=== PATIENT | female | born 1990 | race American Indian/Alaskan Native ===

== ENCOUNTER 2017-10-01 15:36 | Outpatient (CLI) | payer OTHER ==
[2017-10-01 15:56] VITALS: BP 103/58
== END 2017-10-01 16:50 | disposition home or self-care (01) ==
LOC: TRG 15:36
PROVIDERS: ATTEND Obstetrics & Gynecology
DX: Z34.92 Encounter for supervision of normal pregnancy, unspecified, second trimester (principal); Z3A.20 20 weeks gestation of pregnancy
CPT/HCPCS: 59025

== ENCOUNTER 2017-10-26 10:12 | Outpatient (CLI) | payer OTHER ==
[2017-10-26] MEDS ORDERED: NORCO 5/325 PO ONE (11:03)
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
[2017-10-26 13:45] VITALS: BP 98/56
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
== END 2017-10-26 16:22 | disposition home or self-care (01) ==
LOC: EDSTATUS 12:11 → TRG 12:14 → LD 14:08 → TRG 16:22
PROVIDERS: ATTEND Obstetrics & Gynecology
DX: O32.1XX0 Maternal care for breech presentation, not applicable or unspecified (principal); O26.892 Other specified pregnancy related conditions, second trimester; R10.9 Unspecified abdominal pain; M54.9 Dorsalgia, unspecified; O47.02 False labor before 37 completed weeks of gestation, second trimester; Z3A.24 24 weeks gestation of pregnancy
CPT/HCPCS: 59025; 76815

== ENCOUNTER 2018-02-18 11:55 | Outpatient (CLI) | payer OTHER ==
--- NOTE | 2018-02-18 13:58 | Ultrasound Report ---
ULTRASOUND BIOPHYSICAL PROFILE: History: well being Technique: Transabdominal ultrasound with Doppler interrogation. 2 - breathing movements 2 - movements 2 - posture and tone 2 - Qualitative amniotic fluid volume 8 - TOTAL SCORE OF POSSIBLE 8 Heart Rate (bpm) 159
--- NOTE | 2018-02-18 13:58 | Ultrasound Report ---
ULTRASOUND OB LIMITED History: SHANKAR Technique: Transabdominal ultrasound with Doppler interrogation. Gestation: Single Position: Cephalic Amniotic Fluid: Normal SHANKAR = 19.1 cm Heart Rate: 159 BPM
[2018-02-21 10:28] VITALS: BP 100/68
== END 2018-02-18 13:45 | disposition home or self-care (01) ==
LOC: TRG 11:55
PROVIDERS: ATTEND Obstetrics & Gynecology
DX: O47.1 False labor at or after 37 completed weeks of gestation (principal); Z3A.40 40 weeks gestation of pregnancy
CPT/HCPCS: 59025; 76815; 76819

== ENCOUNTER 2018-02-20 23:31 | Inpatient (IN) | payer OTHER ==
--- NOTE | 2018-02-21 00:19 | History and Physical Report ---
History of Present Illness Date of examination: 02/21/18 History of present illness: She presented to labor and delivery with complaints of regular contractions. Initial exam in triage the patient cervix dilated 4 cm. Patient admitted for management of term labor Menstrual History Regularity: irregular Duration: 14 LMP: 04/19/2017 LMP reliability: month known LMP character: heavier test type: urine test Date: 08/17/2017 BC at conception: none Planned ? no EDC Calculations LMP: 01/24/2018 EDC Confirmation: 02/12/2018 Past History : 2 Term Births: 1 Premature Births: 0 Living Children: 1 Para: 1 Mult. Births: 0 Prev : 0 Prev. attempt? 0 Aborta: 0 Elect. Ab: 0 Spont. Ab: 0 Ectopics: 0 # 1 Delivery date: 10/29/2008 Weeks Gestation: 39 labor: no Delivery type: Hours of labor: 11 Anesthesia type: epidural Delivery location: [facility] Infant Sex: Female weight: 7-0 Name: Darryl Past Medical History: no hx of dvt while taking ocp Negative Past Medical History Past Surgical History: Negative Past Surgical History Family History Summary: Other family member - Has No Family History of Ovarvian Cancer - Entered On: Other family member - Has No Family History of Colon Cancer - Entered On: 2017 Other family member - Has No Family History of Breast Cancer - Entered On: 2017 Other family member - Has Family History of Hypertension - Entered On: 08/17/2017 Other family member - Has Family History of Diabetes - Entered On: 08/17/2017 General Comments - FH: No Family History of DVT/PE on OCP Social History: Patient is single 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 Tobacco Use: Never smoker Drug use: no HIV high-risk behavior: low risk Alcohol use: yes Drinks per day: social Dietary Counseling: pn yes Past Medical History Surgery (Non-compliance investigator): Negative Past Surgical History Abnormal PAP: negative Uterine Anomaly: negative Social Hx: 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[employer] Infection History Hx of STD: none HIV Risk Eval: low risk Hepatitis B Risk Eval: low risk Genetic History Congenital Heart Defect: Mom: no Dad: no Julia Disease: Mom: no Dad: no Thalassemia Mom: no Dad: no Neural Tube Defect Mom: no Dad: no Down's Syndrome Mom: no Dad: no Bola-Sachs Mom: no Dad: no Sickle Cell Disease/Trait Mom: yes Dad: no Comments: Maternal Aunt Hemophilia Mom: no Dad: no Muscular Dystrophy Mom: no Dad: no Cystic Fibrosis Mom: no Dad: no Portillo Chorea Mom: no Dad: no Mental Retardation Mom: no Dad: no Fragile X Mom: no Dad: no Other Genetic/Chromosomal Disorder Mom: no Dad: no Child w/other defect Mom: no Dad: no Enviromental Exposures Xray Exposure: no Medication, drug, or alcohol use since LMP: no Chemical/Other Exposure: no Exposure to Cat Liter: no Hx of Parvovirus (Fifth Disease): no Current Allergies (reviewed today): No known allergies Past History Past Medical History: other (see HPI) Past Surgical History: other (see HPI) 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 (see HPI) Family/Genetic History: other (see HPI) Social history: full code, other (see HPI) - Obstetrical History Expected Date of Delivery: 02/12/18 Actual Gestation: 41 Week(s) 3 Day(s) : 2 Para: 1 Hx # Term Pregnancies: 1 Number of Pregnancies: 0 Spontaneous Abortions: 0 Induced : 0 Number of Living Children: 1 Medications and Allergies Allergies Allergy/AdvReac Type Severity Reaction Status Date / Time No Known Allergies Allergy Unverified 10/01/17 15:37 Home Medications Medication Instructions Recorded Confirmed Last Taken Type Pnv,Calcium 72/Iron/Folic Acid 1 each PO DAILY 10/26/17 02/21/18 02/20/18 10:00 History [Preplus Ca-Fe 27 mg-FA 1 mg Tb] Ibuprofen [Motrin 800 MG tab] 800 mg PO Q8HR PRN #30 tablet 02/22/18 Unknown Rx - Vital Signs Vital signs: Temp Pulse Resp BP Pulse Ox 75 111/66 02/21/18 00:16 02/21/18 00:16 - Physical Exam Breasts: Positive: deferred Cardiovascular: Regular rate Lungs: Positive: Normal air movement Abdomen: Positive: normal appearance Genitourinary (Female): Positive: normal external genitalia - Obstetrical Uterine Contraction Pattern: Regular Results Result Diagrams: 02/21/18 21:02 All other labs normal. Assessment and Plan - Patient Problems (1) Active labor at term Current Visit: Yes Status: Acute Plan to address problem: Admit and follow routine labor protocols will augment labor if indicated (2) 41 weeks gestation of Current Visit: Yes Status: Acute
[2018-02-21] MEDS ORDERED: ePHEDrine SULFATE IV PRN ×2 (00:20→06:58)
[2018-02-21] MEDS ORDERED: BRETHINE SUB-Q PRN (00:20)
[2018-02-21] MEDS ORDERED: XYLOCAINE 2% INFILTRATI ONE ×2 (00:20→06:25)
[2018-02-21] MEDS ORDERED: PHENERGAN PO PRN ×2 (00:20→10:41)
[2018-02-21] MEDS ORDERED: PITOCin/NS 20 UNIT/1000ML DRIP 20 UNITS/1,000 ML BAG IV SCH (01:00)
[2018-02-21] MEDS: LACTATED RINGERS 1,000 ML IV SCH ×3 (02:00→06:43)
[2018-02-21 02:23] LABS: Mean Corpuscular HGB Conc 32 % (30-34); Mean Corpuscular Hemoglobin 28 pg (28-32); Mean Corpuscular Volume 86 fl (79-97); Platelet Count 104 K/mm3 (140-440); Red Cell Distribution Width 15.5 % (13.2-15.2)
[2018-02-21] MEDS: STADOL IV PRN ×2 (03:13→05:14)
[2018-02-21] MEDS: PITOCin/NS 30 UNIT/500ML 30 UNITS/500 ML BAG IV SCH ×2 (03:16→07:25)
[2018-02-21] MEDS ORDERED: NARCAN 2 MG/2 ML IV PRN (06:58)
[2018-02-21] MEDS ORDERED: fentaNYL-BUPIV 2 MCG/ML-0.125% 200 MCG/100 ML BAG EPIDURAL SCH (07:00)
--- NOTE | 2018-02-21 07:00 | Anesthesia Day of Surgery ---
Anesthesia Day of Surgery - Day of Surgery Patient Examined: Yes Patient H&P Reviewed: Yes Patient is NPO: Yes
--- NOTE | 2018-02-21 07:00 | Anesthesia Consultation ---
Anesthesia Consult and Med Hx Date of service: 02/21/18 - Airway Anesthetic Teeth Evaluation: Good ROM Head & Neck: Adequate Mental/Hyoid Distance: Adequate Mallampati Class: Class III Intubation Access Assessment: Possibly Difficult - Pulmonary Exam CTA: Yes - Cardiac Exam Cardiac Exam: RRR - Pre-Operative Health Status ASA Pre-Surgery Classification: ASA2 Proposed Anesthetic Plan: Epidural, Spinal - Pulmonary Hx Smoking: No Hx Asthma: No - Cardiovascular System Hx Hypertension: No - Central Nervous System Hx Seizures: No Hx Psychiatric Problems: No - Endocrine Hx Renal Disease: No Hx Hypothyroidism: No Hx Hyperthyroidism: No - Hematic Hx Anemia: No Hx Sickle Cell Disease: No - Other Systems Hx Alcohol Use: No
--- NOTE | 2018-02-21 07:09 | Progress Note ---
Assessment and Plan Pt comfortable with epidural SVE 8,100,0 SROM during epidural placement Light meconium Anticipate delivery. Subjective - Subjective Date of service: 02/21/18 (comfortable with epidural) Patient reports: movement normal Objective - Vital Signs Vital Signs: Vital Signs - 12hr 02/21/18 02/21/18 02/21/18 00:16 01:05 03:22 Temperature 98.6 F Pulse Rate 75 77 Blood Pressure 111/66 101/55 O2 Sat by Pulse Oximetry 02/21/18 02/21/18 02/21/18 04:16 05:01 06:11 Temperature Pulse Rate 77 83 80 Blood Pressure 96/50 102/60 O2 Sat by Pulse 97 Oximetry 02/21/18 02/21/18 02/21/18 06:16 06:21 06:26 Temperature Pulse Rate 83 89 89 Blood Pressure O2 Sat by Pulse 96 95 96 Oximetry 02/21/18 02/21/18 02/21/18 06:31 06:36 06:41 Temperature Pulse Rate 88 89 88 Blood Pressure O2 Sat by Pulse 98 100 97 Oximetry 02/21/18 02/21/18 02/21/18 06:44 06:46 06:48 Temperature Pulse Rate 93 H 89 87 Blood Pressure 117/79 120/71 119/69 O2 Sat by Pulse 98 Oximetry 02/21/18 02/21/18 02/21/18 06:50 06:51 06:56 Temperature Pulse Rate 95 H 93 H 94 H Blood Pressure 122/70 132/68 O2 Sat by Pulse 99 98 Oximetry 02/21/18 02/21/18 07:01 07:06 Temperature Pulse Rate 82 95 H Blood Pressure 124/63 131/74 O2 Sat by Pulse 99 99 Oximetry - Exam Breasts: deferred Cardiovascular: Regular rate Lungs: Normal air movement Abdomen: Present: normal appearance, soft. Absent: distention, tenderness Uterus: Present: normal FHR: auscultation normal, category 1 Uterine Contraction Monitor Mode: External Cervical Dilatation: 8 Cervical Effacement Percentage: 100 station: 0 Uterine Contraction Pattern: Regular Uterine Tone Measurement Phase: Resting Uterine Contraction Intensity: Moderate Extremities: normal Deep Tendon Reflex Grade: Normal +2 - Labs Labs: Abnormal Labs 02/21/18 00:21 RDW 15.5 H Plt Count 104 L Laboratory Results - last 24 hr 02/21/18 02/21/18 00:21 00:25 WBC 8.5 RBC 4.30 Hgb 12.0 Hct 37.0 MCV 86 MCH 28 MCHC 32 RDW 15.5 H Plt Count 104 L Blood Type O POSITIVE Antibody Screen Negative
[2018-02-21] MEDS ORDERED: TUCKS PAD TP PRN (10:41)
[2018-02-21] MEDS ORDERED: MILK OF MAGNESIA PO PRN (10:41)
[2018-02-21] MEDS ORDERED: TYLENOL PO PRN (10:41)
[2018-02-21] MEDS ORDERED: ZOFRAN IV PRN (10:41)
[2018-02-21] MEDS ORDERED: BENADRYL PO PRN (10:41)
[2018-02-21] MEDS ORDERED: LANSINOH TP PRN (10:41)
[2018-02-21] MEDS ORDERED: PHENERGAN PR PRN (10:41)
[2018-02-21] MEDS ORDERED: DULCOLAX PR PRN (10:41)
[2018-02-21] MEDS ORDERED: SODIUM CHLORIDE FLUSH SYRINGE 10 ML IV SCH (11:00)
--- NOTE | 2018-02-21 11:22 | Procedure Note ---
OB Delivery Note - Delivery Date of Delivery: 02/21/18 Criminal Intelligence Specialist: DEION KOHLI Estimated blood loss: 300cc - Vaginal Delivery presentation: vertex Delivery position: OA Intrapartum events: none Delivery induction: none Delivery augmentation: rupture of membranes, pitocin Delivery monitor: external FHT, external uterine, internal FHT Route of delivery: Delivery placenta: spontaneous Delivery cord: 3 umbilical vessels Episiotomy: midline Delivery laceration: 2nd degree Delivery repair: vicryl Anesthesia: epidural Delivery comments: live born female over 2nd degree episiotomy. Shoulder cord noted Delivered past. Baby passed to waiting NICU team due to meconium. Placenta and membrane delivered complete and intact. Pit IVFs. Repair done with 2-0 vicryl in usual fashion. 7/9, EBL 300, Wgt 7-9. Mom and baby remain LDR stable - A at 1 minute: 7 at 5 minutes: 9 Gender: Female (wgt 7-9)
[2018-02-21] MEDS: NORCO 5/325 PO PRN ×2 (12:30→21:30)
[2018-02-21] MEDS ORDERED: MOTRIN PO SCH (14:00)
[2018-02-21] MEDS ORDERED: METHERGINE IM ONE (20:39)
[2018-02-21] MEDS ORDERED: CYTOTEC PR ONE (20:41)
[2018-02-21] MEDS ORDERED: HEMABATE IM ONE (20:41)
--- NOTE | 2018-02-21 20:59 | Progress Note ---
Assessment and Plan - Patient Problems (1) Spontaneous vaginal delivery Current Visit: Yes Status: Acute (2) Single live Current Visit: Yes Status: Acute (3) Vaginal bleeding Current Visit: Yes Status: Acute Plan to address problem: VSS, no bleeding at this time, however will proceed with methergine IM, continue Methergine po [id number]. Hold hemabate and Cytotec. Observe closely Check CBC now. Place 2nd INT in case bleeding recurs Subjective - Subjective Date of service: 02/21/18 Principal diagnosis: DOD with 2nd episiotomy Interval history: Called by RN for vaginal bleeding stating patient is bleeding, patient states she gushed some blood Objective - Vital Signs Latest vital signs: Vital Signs Temp Pulse Resp BP BP Pulse Ox 02/21/18 10:52 99.0 F 78 18 118/62 97 02/21/18 10:01 93 H 116/76 02/21/18 09:46 71 109/56 02/21/18 09:31 78 119/63 02/21/18 09:16 93 H 112/61 02/21/18 09:01 90 112/57 02/21/18 08:56 93 H 113/59 02/21/18 08:51 92 H 140/63 02/21/18 08:47 78 125/60 97 02/21/18 08:42 100 H 96 02/21/18 08:41 82 128/58 02/21/18 08:37 77 98 02/21/18 08:36 86 158/114 02/21/18 08:32 98 H 97 02/21/18 08:26 89 124/68 02/21/18 08:17 87 93 02/21/18 08:16 104 H 134/86 02/21/18 08:12 81 124/74 100 02/21/18 08:07 75 100 02/21/18 08:06 93 H 123/77 02/21/18 08:02 81 99 02/21/18 08:01 80 123/76 02/21/18 07:57 84 124/73 100 02/21/18 07:51 86 121/71 98 02/21/18 07:47 80 127/75 02/21/18 07:46 97.3 F L 80 15 121/71 98 02/21/18 07:43 89 118/74 02/21/18 07:41 100 H 98 02/21/18 07:37 104 H 129/87 02/21/18 07:36 106 H 96 02/21/18 07:31 80 114/73 97 02/21/18 07:26 85 126/71 96 02/21/18 07:23 82 120/73 02/21/18 07:21 80 97 02/21/18 07:17 82 121/70 02/21/18 07:16 88 98 02/21/18 07:11 92 H 122/70 98 02/21/18 07:06 95 H 131/74 99 02/21/18 07:01 82 124/63 99 02/21/18 06:56 94 H 132/68 98 02/21/18 06:51 93 H 99 02/21/18 06:50 95 H 122/70 02/21/18 06:48 87 119/69 02/21/18 06:46 89 120/71 98 02/21/18 06:44 93 H 117/79 02/21/18 06:41 88 97 02/21/18 06:36 89 100 02/21/18 06:31 88 98 02/21/18 06:26 89 96 02/21/18 06:21 89 95 02/21/18 06:16 83 96 02/21/18 06:11 80 97 02/21/18 05:01 83 102/60 02/21/18 04:16 77 96/50 02/21/18 03:22 77 101/55 02/21/18 01:05 98.6 F 02/21/18 00:16 75 111/66 Intake and Output 02/21/18 02/21/18 02/21/18 06:59 14:59 22:59 Intake Total 592.634 15 Balance 592.634 15 Intake: IV 592.634 15 Lactated Ringers 1,000 ml 587.5 @ 125 mls/hr IV DIRECT BRYCE Rx#:[id number] PITOCin/NS 30 UNIT/500ML 5.134 15 30 units In 500 ml @ 2 mls/hr IV TITR BRYCE Rx#: [id number] Other: Weight 84.822 kg Estimated Blood Loss 300 - Exam Narrative Exam: Patient alert and appropriately responsive, no apparent distress Lungs: Present: Normal air movement Vulva: both: normal (episiotomy intact) Uterus: Present: fundal height below umbilicus (firm, no clots in vagina or palpated in the JUAN RAMON. No evidence of bleeding at this time) - Labs Labs: Abnormal lab results 02/21/18 Range/Units 00:21 RDW 15.5 H (13.2-15.2) % Plt Count 104 L (140-440) K/mm3
[2018-02-21] MEDS ORDERED: LACTATED RINGERS 1,000 ML IV SCH (21:00)
[2018-02-21] MEDS: COLACE PO SCH (21:30)
[2018-02-21] MEDS: MOTRIN PO SCH (21:33)
[2018-02-21 21:35] LABS: Hematocrit 34.7 % (30.3-42.9); Hemoglobin 11.3 gm/dl (10.1-14.3); Mean Corpuscular HGB Conc 33 % (30-34); Mean Corpuscular Hemoglobin 28 pg (28-32); Mean Corpuscular Volume 86 fl (79-97); Platelet Count 93 K/mm3 (140-440); Red Blood Count 4.03 M/mm3 (3.65-5.03); Red Cell Distribution Width 15.9 % (13.2-15.2)
[2018-02-22] MEDS: NORCO 5/325 PO PRN ×3 (03:03→15:30)
[2018-02-22] MEDS: METHERGINE PO SCH ×3 (03:04→15:30)
[2018-02-22] MEDS ORDERED: BOOSTRIX IM ONE (06:00)
--- NOTE | 2018-02-22 08:34 | Discharge Summary ---
Providers - Providers Date of Admission: 02/21/18 00:28 Date of discharge: 02/22/18 (desires d/c home today) Attending physician: GEOVANY RAY Primary care physician: GEOVANY RAY Hospitalization Reason for admission: Labor Condition: Good Pertinent studies: H&H 11.3/34.7 Procedures: Hospital course: uncomplicated vag and course Disposition: DC-01 TO HOME OR SELFCARE - Discharge Diagnoses (1) Spontaneous vaginal delivery Status: Acute Core Measure Documentation - Palliative Care Palliative Care/ Comfort Measures: Not Applicable - Core Measures Any of the following diagnoses?: none Exam - Constitutional Vitals: Temp Pulse Resp BP Pulse Ox 98.2 F 75 18 116/72 97 02/22/18 01:05 02/22/18 01:05 02/22/18 01:05 02/22/18 01:05 02/21/18 10:52 General appearance: Present: no acute distress, well-nourished - EENT Eyes: Present: PERRL ENT: hearing intact, clear oral mucosa - Neck Neck: Present: supple, normal ROM - Respiratory Respiratory effort: normal Respiratory: bilateral: CTA - Cardiovascular Heart Sounds: Present: S1 & S2. Absent: rub, click - Extremities Extremities: pulses symmetrical, No edema Peripheral Pulses: within normal limits - Abdominal General gastrointestinal: Present: soft, non-tender, non-distended, normal bowel sounds Female genitourinary: Present: normal - Integumentary Integumentary: Present: clear, warm, dry - Musculoskeletal Musculoskeletal: gait normal, strength equal bilaterally - Psychiatric Psychiatric: appropriate mood/affect, intact judgment & insight - Neurologic Neurologic: CNII-XII intact, moves all extremities - Additional findings Additional findings: bottle feeding, fundus firm, lochia scant, vssaf Plan Activity: no restrictions Diet: regular Follow up with: GEOVANY RAY MD [Primary Care Provider] - 03/22/18 (Congratulations! Please call [phone] to schedule your visit in 4 weeks. Call for any questions or concerns. ) Prescriptions: Ibuprofen [Motrin 800 MG tab] 800 mg PO Q8HR PRN #30 tablet PRN Reason: Pain
[2018-02-22] MEDS: COLACE PO SCH (09:55)
[2018-02-22] MEDS ORDERED: PRENATAL VITAMIN PO SCH (10:00)
[2018-02-22] MEDS ORDERED: M-M-R II VACCINE SUB-Q ONE (10:41)
[2018-02-23] MEDS: NORCO 5/325 PO PRN (00:54)
[2018-02-23] MEDS: COLACE PO SCH (00:54)
[2018-02-23] MEDS: MOTRIN PO SCH ×2 (00:55→08:55)
[2018-02-23] MEDS: METHERGINE PO SCH (01:05)
[2018-02-23 08:38] VITALS: BP 108/75
== END 2018-02-23 13:30 | disposition home or self-care (01) | DRG 775 ==
LOC: TRG 23:31 → LD 02-21 00:28 → OB 02-21 11:01
PROVIDERS: ADMIT Obstetrics & Gynecology; ATTEND Obstetrics & Gynecology
PROC: 10E0XZZ Delivery of Products of Conception, External Approach (ICD-10-PCS; principal; 2018-02-21)
PROC: 0KQM0ZZ Repair Perineum Muscle, Open Approach (ICD-10-PCS; 2018-02-21)
PROC: 3E0R3BZ Introduction of Anesthetic Agent into Spinal Canal, Percutaneous Approach (ICD-10-PCS; 2018-02-21)
PROC: 00HU33Z Insertion of Infusion Device into Spinal Canal, Percutaneous Approach (ICD-10-PCS; 2018-02-21)
DX: O77.0 Labor and delivery complicated by meconium in amniotic fluid (principal); O70.1 Second degree perineal laceration during delivery; Z3A.41 41 weeks gestation of pregnancy; Z37.0 Single live birth
CPT/HCPCS: 36415; 85027; 86592; 86850; 86900; 86901; A6250; J0595; J2210; J2590; J7120